=== PATIENT | female | born 1965 | race Caucasian/White ===

== ENCOUNTER 2024-10-14 18:24 | Emergency (ER) | payer BC ==
[2024-10-14 18:39] VITALS: TEMP 97.8
--- NOTE | 2024-10-14 19:31 | ED ---
Upper Extremity HPI - General Chief Complaint: Extremity Injury, Upper Stated Complaint: R wrist injury Time Seen by Provider: 10/14/24 18:42 Source: patient, RN notes reviewed Mode of arrival: EMS Limitations: no limitations - History of Present Illness Initial Comments: This is a 59-year-old female presenting for right wrist injury occurring at 1730 today. Patient states she attempted to stop a patient who was running away when a door he slammed struck her outstretched palm, injuring her right wrist in the process. Patient endorses pain with hand rotation. States pain is relieved when holding hand close of body. Patient denies other injuries, distal paresthesia or motor weakness. Denies use of blood thinners. MD Complaint: Injury to:: right, wrist Onset/Timin -: hour(s) Time: 17:30 Other Extremity Injury: Hand: Right, Wrist: Right Place: work Improves With: immobilization, rest Worsens With: movement of extremity Context: direct blow Associated Symptoms: denies other symptoms - Related Data Previous Rx's Medication Instructions Recorded Ibuprofen [Motrin] 400 mg PO Q8HR PRN #30 tab 10/14/24 Allergies Allergy/AdvReac Type Severity Reaction Status Date / Time Penicillins Allergy Rash/Hives Verified 10/18/24 09:02 Review of Systems ROS Statement: Those systems with pertinent positive or pertinent negative responses have been documented in the HPI. ROS Other: All systems not noted in ROS Statement are negative. Past Medical History Past Medical History: No Reported History History of Any Multi-Drug Resistant Organisms: None Reported Past Surgical History: Section Past Psychological History: No Psychological Hx Reported Smoking Status: Current some day smoker Past Alcohol Use History: None Reported Past Drug Use History: None Reported General Exam Limitations: no limitations General appearance: alert, in no apparent distress Head exam: Present: atraumatic, normocephalic, normal inspection Eye exam: Present: normal appearance, PERRL, EOMI. Absent: scleral icterus, conjunctival injection, periorbital swelling ENT exam: Present: normal exam, mucous membranes moist Neck exam: Present: normal inspection. Absent: tenderness, meningismus, lymphadenopathy Respiratory exam: Present: normal lung sounds bilaterally. Absent: respiratory distress, wheezes, rales, rhonchi, stridor Cardiovascular Exam: Present: regular rate, normal rhythm, normal heart sounds. Absent: systolic murmur, diastolic murmur, rubs, gallop, clicks GI/Abdominal exam: Present: soft, normal bowel sounds. Absent: distended, tenderness, guarding, rebound, rigid Extremities exam: Present: normal inspection, full ROM, normal capillary refill. Absent: tenderness, pedal edema, joint swelling, calf tenderness Right Shoulder Exam: Present: normal inspection, full ROM Upper Arm exam: Present: normal inspection, full ROM Elbow exam: Present: normal inspection, tenderness Forearm Wrist exam: Present: tenderness (Positive distal radial head tenderness), other (Positive pain with supination/pronation. Radial pulse +2). Absent: swelling, abrasion, laceration, ecchymosis, deformity, crepitus, dislocation, erythema Hand Wrist exam: Present: normal inspection, full ROM, other (Distal neurovascular intact. Capillary refill less than 2 seconds. 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 Absent: rash Course Vital Signs 10/14/24 10/14/24 18:37 21:25 Temperature 97.8 F 97.8 F Pulse Rate 72 79 Respiratory 16 18 Rate Blood Pressure 166/82 154/79 O2 Sat by Pulse 99 98 Oximetry Procedures - Orthopedic Splinting/Casting Injury #1 Side: right Upper Extremity Injury Location: wrist Upper Extremity Immobilizer: sling/shoulder immobilizer, sugar tong splint Medical Decision Making - Medical Decision Making Was pt. sent in by a medical professional or institution (, PA, [employer], urgent care, hospital, or fpc...) When possible be specific @ -No Did you speak to anyone other than the patient for history (EMS, parent, family, police, friend...)? What history was obtained from this source @ -No Did you review nursing and triage notes (agree or disagree)? Why? @ -I reviewed and agree with nursing and triage notes Were old charts reviewed (outside hosp., previous admission, EMS record, old EKG, old radiological studies, urgent care reports/EKG's, fpc records)? Report findings @ -No old charts were reviewed Differential Diagnosis (chest pain, altered mental status, abdominal pain women, abdominal pain men, vaginal bleeding, weakness, fever, dyspnea, syncope, headache, dizziness, GI bleed, back pain, seizure, CVA, palpatations, mental health, musculoskeletal)? @ -Differential Musculoskeletal Muscular strain, contusion, ligament sprain, fracture, arthritis, septic arthri tis, bursitis, cellulitis, muscle spasm, nerve compression, DVT, arterial occlusion, herpes zoster, electrolyte abnormality, tumor.... This is not meant to be in all inclusive list EKG interpreted by me (3pts min.). @ -Not done X-rays interpreted by me (1pt min.). @ -Right wrist x-ray shows fracture of distal radius with possible extension into the distal radial ulnar joint. Bone fragments appears displaced off the posterior aspect. Post splint x-ray shows improved anatomic alignment. CT interpreted by me (1pt min.). @ -None done U/S interpreted by me (1pt. min.). @ -None done What testing was considered but not performed or refused? (CT, X-rays, U/S, labs)? Why? @ -None What meds were considered but not given or refused? Why? @ -None Did you discuss the management of the patient with other professionals (professionals i.e. , PA, [employer], lab, RT, psych nurse, social and human services assistant, desk operator, teacher, senior loan officer, manager rn case)? Give summary @ -No Was smoking cessation discussed for >3mins.? @ -No Was critical care preformed (if so, how long)? @ -No Were there social determinants of health that impacted care today? How? (Homelessness, low income, unemployed, alcoholism, drug addiction, transportation, low edu. Level, literacy, decrease access to med. care, long-term, rehab)? @ -No Was there de-escalation of care discussed even if they declined (Discuss DNR or withdrawal of care, Hospice)? DNR status @ -No What co-morbidities impacted this encounter? (DM, HTN, Smoking, COPD, CAD, Cancer, CVA, ARF, Chemo, Hep., AIDS, mental health diagnosis, sleep apnea, morbid obesity)? @ -None Was patient admitted / discharged? Hospital course, mention meds given and route, prescriptions, significant lab abnormalities, going to OR and other pertinent info. @ -Right wrist x-ray shows fracture of distal radius with possible extension into the distal radial ulnar joint. Bone fragments appears displaced off the posterior aspect. Patient provided p.o. Motrin for pain. Sugar-tong splint and sling applied. Post splint x-ray shows improved anatomic alignment. Distal neurovascular and motor function intact along with capillary refill less than 2 seconds following splinting. Motrin 400 sent to patient's pharmacy. Advised alternate Tylenol/Motrin every 4 hours for pain and RICE. Follow-up with orthopedics for ongoing management of fracture and determine possible intra- articular extension of fracture. Discussed patient with Dr. Rodriguez. Undiagnosed new problem with uncertain prognosis? @ -No Drug Therapy requiring intensive monitoring for toxicity (Heparin, Nitro, Insulin, Cardizem)? @ -No Were any procedures done? @ -Sugar-tong splint applied to right wrist/forearm and patient provided sling. See procedure note Diagnosis/symptom? @ -Distal radial head fracture Acute, or Chronic, or Acute on Chronic? @ -Acute Uncomplicated (without systemic symptoms) or Complicated (systemic symptoms)? @ -Uncomplicated Side effects of treatment? @ -No Exacerbation, Progression, or Severe Exacerbation? @ -No Poses a threat to life or bodily function? How? (Chest pain, [place], [place], pneumonia, PE, COPD, DKA, ARF, appy, cholecystitis, CVA, Diverticulitis, Homicidal, Suicidal, threat to staff... and all critical care pts) @ -No Disposition Clinical Impression: Radial head fracture, closed Disposition: HOME SELF-CARE Condition: Good Instructions (If sedation given, give patient instructions): Wrist Fracture in Adults (ED) Additional Instructions: Alternate Tylenol/Motrin every 4 hours for pain. Follow-up with orthopedics for ongoing evaluation and definitive treatment. Prescriptions: Ibuprofen [Motrin] 400 mg PO Q8HR PRN #30 tab PRN Reason: Pain Is patient prescribed a controlled substance at d/c from ED?: No Referrals: None,Stated [Primary Care Provider] - 1-2 days [facility] [Provider Group] - 1-2 days [facility] [Provider Group] - 1-2 days Time of Disposition: 20:41
--- NOTE | 2024-10-14 19:59 | XR ---
EXAMINATION TYPE: XR wrist complete RT DATE OF EXAM: 10/14/2024 7:40 PM COMPARISON: None CLINICAL INDICATION: Female, 59 years old with history of Right wrist injury, pain TECHNIQUE: XR wrist complete RT; examined in the Frontal, navicular, lateral, and oblique. FINDINGS: Distal radius fracture without intra-articular extension definitively visualized. Consider further evaluation with CT if there is concern for intra-articular extension to the wrist there is po ssible extension to the distal radioulnar joint.. Bone fragment extends displaced off the posterior a spect. No acute osseous pathology, joint dislocation, or joint effusion. No evidence of any soft tis brendan swelling is seen. IMPRESSION: Fracture of distal radius without definitive intra-articular extension to the wrist, possible extensi on to the distal radioulnar joint.. [facility], , 10/14/2024 7:57 PM
[2024-10-14] MEDS: IBUPROFEN 400 MG TAB PO STA (20:47)
--- NOTE | 2024-10-14 21:28 | XR ---
EXAMINATION TYPE: XR wrist limited RT DATE OF EXAM: 10/14/2024 9:15 PM COMPARISON: Same day CLINICAL INDICATION: Female, 59 years old with history of Post splint; PH[facility], pain TECHNIQUE: XR wrist limited RT; examined in the Frontal, navicular, lateral, and oblique. FINDINGS/IMPRESSION: 1. Improved anatomic alignment of the distal radius fracture with possible intra-articular extension now visualized posteriorly. 2. Cast material in place. [facility], , 10/14/2024 9:25 PM
[2024-10-14 21:40] VITALS: BP 154/79; PULSE 79; RESP 18
== END 2024-10-14 21:41 | disposition home or self-care (01) ==
LOC: EC 18:24
DX: S52.124A Nondisplaced fracture of head of right radius, initial encounter for closed fracture (principal); F17.200 Nicotine dependence, unspecified, uncomplicated; Z88.0 Allergy status to penicillin; W20.8XXA Other cause of strike by thrown, projected or falling object, initial encounter
CPT/HCPCS: 29125; 99284

== ENCOUNTER 2024-10-18 08:58 | Emergency (ER) | payer BC ==
--- NOTE | 2024-10-18 09:22 | ED ---
Upper Extremity HPI - General Chief Complaint: Extremity Injury, Upper Stated Complaint: R Hand Swollen Time Seen by Provider: 10/18/24 09:02 Source: patient, RN notes reviewed Mode of arrival: ambulatory Limitations: no limitations - History of Present Illness Initial Comments: This is a 59-year-old female who presents to the emergency department for right hand swelling. Patient was evaluated here on 10/14 for a right wrist injury. She had fractured her wrist and was put in a splint. States that when she woke up this morning she felt like her fingers were swollen more than normal, which concerned her. Denies any pain associated with this. She has an appointment with orthopedics scheduled for this upcoming week. - Related Data Previous Rx's Medication Instructions Recorded Ibuprofen [Motrin] 400 mg PO Q8HR PRN #30 tab 10/14/24 Allergies Allergy/AdvReac Type Severity Reaction Status Date / Time Penicillins Allergy Rash/Hives Verified 10/18/24 09:02 Review of Systems ROS Statement: Those systems with pertinent positive or pertinent negative responses have been documented in the HPI. ROS Other: All systems not noted in ROS Statement are negative. Past Medical History Past Medical History: No Reported History History of Any Multi-Drug Resistant Organisms: None Reported Past Surgical History: Section Past Psychological History: No Psychological Hx Reported Smoking Status: Current some day smoker Past Alcohol Use History: None Reported Past Drug Use History: None Reported General Exam Limitations: no limitations General appearance: alert, in no apparent distress Head exam: Present: atraumatic, normocephalic, normal inspection Respiratory exam: Present: normal lung sounds bilaterally. Absent: respiratory distress, wheezes, rales, rhonchi, stridor Cardiovascular Exam: Present: regular rate, normal rhythm Extremities exam: Present: other (Generalized swelling and ecchymosis to the right hand. No tenderness. Full range of motion. 2+ radial pulses. Capillary refill less than 1 second.) Neurological exam: Present: alert, oriented X3, CN II-XII intact Psychiatric exam: Present: normal affect, normal mood Course Vital Signs 10/18/24 10/18/24 09:00 09:32 Temperature 97.8 F 98.6 F Pulse Rate 77 82 Respiratory 16 20 Rate Blood Pressure 170/83 154/78 O2 Sat by Pulse 99 99 Oximetry Medical Decision Making - Medical Decision Making This is a 59-year-old female who presents to the emergency department for right hand swelling. Was pt. sent in by a medical professional or institution? @ -No Did you speak to anyone other than the patient for history? @ -No Did you review nursing and triage notes? @ -Yes, and I agree, it is accurate with regards to the patient's symptoms. Were old charts reviewed? @ -X-ray of the right wrist from 10/14/2024 demonstrating a distal radius fracture. Differential Diagnosis? @ -Differential Musculoskeletal Muscular strain, contusion, ligament sprain, fracture, arthritis, septic arthritis, bursitis, cellulitis, muscle spasm, nerve compression, DVT, arterial occlusion, herpes zoster, electrolyte abnormality, tumor.... This is not meant to be in all inclusive list EKG interpreted by me (3pts min.)? @ -Not obtained X-rays interpreted by me (1pt min.)? @ -Not obtained CT interpreted by me (1pt min.)? @ -Not obtained U/S interpreted by me (1pt. min.)? @ -Not obtained What testing was considered but not performed? (CT, X-rays, U/S, labs)? Why? @ -None What meds were considered but not given? Why? @ -None Did you discuss the management of the patient with other professionals? @ -No Did you reconcile home meds? @ -No Was smoking cessation discussed for >3mins.? @ -No Was critical care preformed (if so, how long)? @ -No Were there social determinants of health that impacted care today? How? (Homelessness, low income, unemployed, alcoholism, drug addiction, transportation, low edu. Level, literacy, decrease access to med. care, snf, rehab)? @ -No Was there de-escalation of care discussed even if they declined? (Discuss DNR or withdrawal of care, Hospice)? @ -No What co-morbidities impacted this encounter? (DM, HTN, Smoking, COPD, CAD, Cancer, CVA, Hep., AIDS, mental health diagnosis, sleep apnea, morbid obesity)? @ -None Was patient admitted / discharged? @ -Discharged. Patient evaluated here on 10/14 for a right distal radius fracture. She was concerned about swelling to the hand that got worse this morning. She had a strong capillary refill and had no discomfort with this. She had none of the 5 Ps (pain, pallor, paresthesia, pulselessness, or paralysis) to suggest compartment syndrome. These signs were reviewed with the patient in terms of what to look out for. Otherwise advised she elevate the arm as much as possible and follow-up with orthopedics as scheduled. Patient discharged home in stable condition. Case discussed with ED attending Dr. Cardenas. Return precautions reviewed in depth, the patient is instructed to return to the emergency department with any new, worsening, or concerning symptoms. Patient verbalized understanding. Undiagnosed new problem with uncertain prognosis? @ -None Drug Therapy requiring intensive monitoring for toxicity (Heparin, Nitro, Insulin, Cardizem)? @ -None Were any procedures done? @ -None Diagnosis/symptom? @ -Right distal radius fracture, right hand swelling Acute, or Chronic, or Acute on Chronic? @ -Acute Uncomplicated (without systemic symptoms) or Complicated (systemic symptoms)? @ -Uncomplicated Side effects of treatment? @ -None Exacerbation, Progression, or Severe Exacerbation] @ -Not applicable Poses a threat to life or bodily function? @ -No Disposition Clinical Impression: Right wrist fracture, Swelling of right hand Disposition: HOME SELF-CARE Instructions (If sedation given, give patient instructions): Wrist Fracture in Adults (ED), Splint Care (ED) Additional Instructions: Return to the emergency department with any new, worsening, or concerning symptoms. Follow up with orthopedics as scheduled. Is patient prescribed a controlled substance at d/c from ED?: No Referrals: None,Stated [Primary Care Provider] - 1-2 days Time of Disposition: 09:22
[2024-10-18 09:41] VITALS: BP 154/78; PULSE 82; RESP 20; TEMP 98.6
== END 2024-10-18 09:32 | disposition home or self-care (01) ==
LOC: EC 08:58
DX: S62.101A Fracture of unspecified carpal bone, right wrist, initial encounter for closed fracture (principal); M79.89 Other specified soft tissue disorders; F17.200 Nicotine dependence, unspecified, uncomplicated; Z88.0 Allergy status to penicillin; X58.XXXA Exposure to other specified factors, initial encounter
CPT/HCPCS: 29125; 99283